=== PATIENT | female | born 1970 | race Caucasian/White ===

== ENCOUNTER 2020-04-20 11:36 | Inpatient (IN) | payer OTHER ==
[~2020-04-20] VITALS: Ht 157.5 cm; Wt 54.4 kg
[~2020-04-20 11:36] MED LIST: AEROECLIPSE II1 EACH MC; ALBUTEROL INH; ALBUTEROL1.25 MG/3 INH; ANORO ELLIPTA1 EACH INH; FUROSEMIDE20 MG PO; HYDROXYZINE HCL25 MG PO; MEDROL DOSEPAK 24 MG PO; NICOTINE PATCH1 EAC2 TOP; OMNICEF 300 MG300 MG PO; PERCOCET 5/325 T1 EA PO; PREDNISONE 50 M50 MG PO; VENTOLIN HFA 66.7 GM INH; VIBRAMYCIN100 MG PO; ZITHROMAX500 MG PO; ZOLOFT50 MG PO
[2020-04-20 12:12] LABS: HEMOGLOBIN 12.6 gm/dl (12.3-15.3); RED BLOOD COUNT 4.55 M/UL (4.00-5.10); WHITE BLOOD COUNT 12.2 K/UL (4.5-11.0)
[2020-04-20 12:32] LABS: BUN/CREATININE RATIO 20 (0-10)
[2020-04-20] MEDS ORDERED: BREO ELLIPTA 21 EACH INH (20:57)
[2020-04-21 03:29] LABS: HEMOGLOBIN 12.4 gm/dl (12.3-15.3); RED BLOOD COUNT 4.54 M/UL (4.00-5.10); WHITE BLOOD COUNT 13.3 K/UL (4.5-11.0)
[2020-04-21 03:45] LABS: BUN/CREATININE RATIO 20 (0-10)
[2020-04-22] MEDS ORDERED: NICOTINE PATCH1 EAC1 TD (16:23)
[2020-04-22] MEDS ORDERED: PREDNISONE 5 MG5 MG PO (16:23)
[2020-10-17] MEDS ORDERED: ALBUTEROL2.5 MG/3 M INH (09:03)
[2020-10-17] MEDS ORDERED: ANORO ELLIPTA1 EACH INH (09:05)
[2020-10-17] MEDS ORDERED: FUROSEMIDE40 MG PO (09:05)
[2020-10-17] MEDS ORDERED: HYDROXYZINE HCL25 MG PO (09:06)
[2020-10-17] MEDS ORDERED: KLOR-CON M2020 MEQ PO (09:06)
[2020-10-17] MEDS ORDERED: LISINOPRIL5 MG PO (09:07)
[2020-10-17] MEDS ORDERED: OMEPRAZOLE20 M1 PO (09:07)
[2020-10-17] MEDS ORDERED: LOW DOSE ASPIRI81 MG PO (09:08)
[2020-10-17] MEDS ORDERED: SERTRALINE HCL50 MG PO (09:08)
[2020-10-17] MEDS ORDERED: IRON PILL PO (09:09)
== END 2020-04-22 17:40 | disposition home or self-care (01) | DRG 189 ==
LOC: ER1 11:36 → MED SURG 4 18:46 → CDU 18:46 → MED SURG 4 21:18
PROVIDERS: Emergency Medicine; ADMIT Internal Medicine
DX: J96.01 Acute respiratory failure with hypoxia (principal); I50.33 Acute on chronic diastolic (congestive) heart failure; J44.1 Chronic obstructive pulmonary disease with (acute) exacerbation; Z20.828 Contact with and (suspected) exposure to other viral communicable diseases; Z90.81 Acquired absence of spleen; E27.8 Other specified disorders of adrenal gland; F17.210 Nicotine dependence, cigarettes, uncomplicated; F41.9 Anxiety disorder, unspecified; D47.3 Essential (hemorrhagic) thrombocythemia; F10.11 Alcohol abuse, in remission; Z90.49 Acquired absence of other specified parts of digestive tract; Z96.643 Presence of artificial hip joint, bilateral; Z88.1 Allergy status to other antibiotic agents; I27.20 Pulmonary hypertension, unspecified; I08.1 Rheumatic disorders of both mitral and tricuspid valves; Z23 Encounter for immunization
CPT/HCPCS: ECHO; 36415; 36600; 71045; 80053; 81001; 82550; 82553; 82803; 83605; 83690; 83874; 83880; 84484; 85025; 85027; 85379; 85610; 85730; 87040; 93005; 93306; 94640; 94664; 94760; 96372; 96374; 99285; J1650; J1940; J2920; Q0177; Q9967; U0002

== ENCOUNTER 2020-05-27 20:41 | Inpatient (IN) | payer OTHER ==
[~2020-05-27] VITALS: Ht 157.5 cm; Wt 56.7 kg
[~2020-05-27 20:41] MED LIST changes: +BREO ELLIPTA 21 EACH INH; +NICOTINE PATCH1 EAC1 TD; +PREDNISONE 5 MG5 MG PO
[2020-05-27 21:40] LABS: HEMOGLOBIN 12.5 gm/dl (12.3-15.3); RED BLOOD COUNT 4.66 M/UL (4.00-5.10); WHITE BLOOD COUNT 14.9 K/UL (4.5-11.0)
[2020-05-27 21:53] LABS: BUN/CREATININE RATIO 12 (0-10)
[2020-05-28 06:38] LABS: HEMOGLOBIN 11.8 gm/dl (12.3-15.3); RED BLOOD COUNT 4.54 M/UL (4.00-5.10); WHITE BLOOD COUNT 11.3 K/UL (4.5-11.0)
[2020-05-28] MEDS ORDERED: VISTARIL50 MG PO (07:05)
[2020-05-28 07:11] LABS: BUN/CREATININE RATIO 16 (0-10)
--- NOTE | 2020-05-29 13:10 | NUR ---
PT HAS C/O ABD PAIN ALL MORNING DRYHEAVES NOTED , GOT HER NAUSEA AND ANXIETY MEDS ORDERED , DAUGHTER WAS WITH HER AND NOT HER AUNT IS WITH HER , DR TRAYLOR JUST WALKED OUT OF RROM AND SISTER CAME OUT AND SAID NOW SHE IS HAVING CHEST PAIN , I ASKED IF SHE TOLD THE DR SHE SAID NOW IT JUST STARTED , SO I IMMEDIATLY WALKED UP FRONT AND TOLD DR TRAYLOR THAT , SHE HAS ORDERED PULMONARY TO CONSULT ON HER NOTED AND AND ADDED ANOTHER ANTIBIOTIC WAS STARTED . PT TALKES HER AIRVO OFF AND ON I INSTRUCTED HER NOT TO BE DOING THAT HER SATS DROPS INTO THE 70S NOTED , BEDSIDE COMMODE AT HER SIDE , INSTRUCTED FOR HER TO CALL FOR HELP NOT TO GET UP ALONE , SHE VERBALIZES. FAMILY REMAINS AT BEDSIDE .
[2020-05-29 19:39] LABS: BORDETELLA PARAPERTUSSIS Not Detected (Not Detectd); BORDETELLA PERTUSSIS Not Detected (Not Detectd); CHLAMYDIA PNEUMONIAE Not Detected (Not Detectd); CORONAVIRUS HKU1 Not Detected (Not Detectd); CORONAVIRUS NL63 Not Detected (Not Detectd); CORONAVIRUS OC43 Not Detected (Not Detectd); CORONOAVIRUS 229E Not Detected (Not Detectd); HUMAN METAPNEUMOVIRUS Not Detected (Not Detectd); HUMAN RHINOVIRUS/ENTEROVIRUS Not Detected (Not Detectd); INFLUENZA A Not Detected (Not Detectd); INFLUENZA B Not Detected (Not Detectd); MYCOPLASMA PNEUMONIAE Not Detected (Not Detectd); PARAINFLUENZA VIRUS 1 Not Detected (Not Detectd); PARAINFLUENZA VIRUS 2 Not Detected (Not Detectd); PARAINFLUENZA VIRUS 3 Not Detected (Not Detectd); PARAINFLUENZA VIRUS 4 Not Detected (Not Detectd); RESPIRATORY SYNCYTIAL VIRUS Not Detected (Not Detectd)
[2020-05-29 20:35] LABS: SARS-CoV-2 NOT DETECTED (Not Detectd)
[2020-05-30 03:39] LABS: BUN/CREATININE RATIO 26 (0-10)
[2020-05-31 05:55] LABS: HEMOGLOBIN 11.6 gm/dl (12.3-15.3); RED BLOOD COUNT 4.42 M/UL (4.00-5.10); WHITE BLOOD COUNT 23.9 K/UL (4.5-11.0)
[2020-05-31 06:14] LABS: BUN/CREATININE RATIO 27 (0-10)
--- NOTE | 2020-05-31 11:29 | NUR ---
05/31/20 1100 ROOM AIR SAT 85%
[2020-06-01 17:08] LABS: ORGANISM ID Not indicated. (.); SPECIMEN SOURCE Urine (.); STREPTOCOCCUS PNEUMONIAE AG Negative (Negative)
[2020-06-02] MEDS ORDERED: METHYLPREDNISOLO4 M1 PO ×3 (10:14)
[2020-06-02] MEDS ORDERED: FUROSEMIDE20 MG PO (10:14)
[2020-06-02] MEDS ORDERED: CEFUROXIME250 MG PO (10:14)
[2020-06-02] MEDS ORDERED: NICOTINE PATCH1 EAC1 TD (10:22)
[2020-10-17] MEDS ORDERED: ALBUTEROL2.5 MG/3 M INH (09:03)
[2020-10-17] MEDS ORDERED: ANORO ELLIPTA1 EACH INH (09:05)
[2020-10-17] MEDS ORDERED: FUROSEMIDE40 MG PO (09:05)
[2020-10-17] MEDS ORDERED: HYDROXYZINE HCL25 MG PO (09:06)
[2020-10-17] MEDS ORDERED: KLOR-CON M2020 MEQ PO (09:06)
[2020-10-17] MEDS ORDERED: LISINOPRIL5 MG PO (09:07)
[2020-10-17] MEDS ORDERED: OMEPRAZOLE20 M1 PO (09:07)
[2020-10-17] MEDS ORDERED: LOW DOSE ASPIRI81 MG PO (09:08)
[2020-10-17] MEDS ORDERED: SERTRALINE HCL50 MG PO (09:08)
[2020-10-17] MEDS ORDERED: IRON PILL PO (09:09)
== END 2020-06-02 15:14 | disposition home or self-care (01) | DRG 291 ==
LOC: ER1 20:41 → ZEROF 05-28 03:02 → MED SURG 4 05-28 03:02
PROVIDERS: Emergency Medicine; Internal Medicine; ADMIT Internal Medicine
DX: I11.0 Hypertensive heart disease with heart failure (principal); J96.01 Acute respiratory failure with hypoxia; R65.11 Systemic inflammatory response syndrome (SIRS) of non-infectious origin with acute organ dysfunction; J44.1 Chronic obstructive pulmonary disease with (acute) exacerbation; F41.9 Anxiety disorder, unspecified; Z20.822 Contact with and (suspected) exposure to COVID-19; I50.33 Acute on chronic diastolic (congestive) heart failure; F17.210 Nicotine dependence, cigarettes, uncomplicated; I27.20 Pulmonary hypertension, unspecified; F32.9 Major depressive disorder, single episode, unspecified; Z99.81 Dependence on supplemental oxygen; Z88.1 Allergy status to other antibiotic agents; Z98.890 Other specified postprocedural states; Z83.3 Family history of diabetes mellitus; D47.3 Essential (hemorrhagic) thrombocythemia; R74.01 Elevation of levels of liver transaminase levels; F10.11 Alcohol abuse, in remission
CPT/HCPCS: 36415; 36600; 71045; 74150; 80048; 80053; 82550; 82553; 82803; 83735; 83874; 83880; 84484; 85025; 85379; 86738; 87040; 87205; 87278; 87633; 87899; 93005; 94640; 94664; 94760; 96365; 96366; 96367; 96368; 96375; 96376; 99285; J0456; J0696; J1650; J1940; J2060; J2405; J2920; J2930; J7030; Q0177; Q9967; U0002

== ENCOUNTER 2020-06-09 23:49 | Inpatient (IN) | payer OTHER ==
[~2020-06-09] VITALS: Ht 160 cm; Wt 61.2 kg
[~2020-06-09 23:49] MED LIST changes: +CEFUROXIME250 MG PO; +METHYLPREDNISOLO4 M1 PO; +VISTARIL50 MG PO
[2020-06-10 00:39] LABS: HEMOGLOBIN 11.8 gm/dl (12.3-15.3); RED BLOOD COUNT 4.5 M/UL (4.00-5.10); WHITE BLOOD COUNT 15.6 K/UL (4.5-11.0)
[2020-06-10 01:04] LABS: BUN/CREATININE RATIO 18 (0-10)
[2020-06-11 03:38] LABS: HEMOGLOBIN 11.1 gm/dl (12.3-15.3); RED BLOOD COUNT 4.33 M/UL (4.00-5.10)
[2020-06-11 03:44] LABS: WHITE BLOOD COUNT 7.4 K/UL (4.5-11.0)
[2020-06-11 04:03] LABS: BUN/CREATININE RATIO 21 (0-10)
[2020-06-12 04:41] LABS: HEMOGLOBIN 10.8 gm/dl (12.3-15.3); RED BLOOD COUNT 4.19 M/UL (4.00-5.10); WHITE BLOOD COUNT 7.4 K/UL (4.5-11.0)
[2020-06-12 04:59] LABS: BUN/CREATININE RATIO 27 (0-10)
[2020-06-13 02:57] LABS: HEMOGLOBIN 11.2 gm/dl (12.3-15.3); RED BLOOD COUNT 4.35 M/UL (4.00-5.10); WHITE BLOOD COUNT 10.5 K/UL (4.5-11.0)
[2020-06-13 03:29] LABS: BUN/CREATININE RATIO 27 (0-10)
[2020-06-14 06:17] LABS: HEMOGLOBIN 11.9 gm/dl (12.3-15.3); RED BLOOD COUNT 4.56 M/UL (4.00-5.10)
[2020-06-14 06:22] LABS: WHITE BLOOD COUNT 15.8 K/UL (4.5-11.0)
[2020-06-14 08:23] LABS: BUN/CREATININE RATIO 22 (0-10)
--- NOTE | 2020-06-14 15:26 | NUR ---
1445: PATIENT HAS BEEN PROFOUNDLY TIRED TODAY AND SLEPT MOST OF DAY; ABG'S DRAWN EARLIER, WITH NOTED INCREASE IN [place] FROM ADMISSION ABG. PATIENT ALSO A KNOW "METH" USER. PATIENT AGAIN STATES THAT SHE LAST USED METH ABOUT 3 WEEKS AGO. ORDER NOTED TO TRY BIPAP FOR ABOUT 2 HOURS AND MONITOR FOR IMPROVED LETHARGY. 1500: PATIENT PLACED ON BIPAP / WITH 32% FI02 WITH A BACK-UP RATE OF 16. RN WILL MONITOR FOR EFFECTIVENESS AND REPORT BACK TO DR RIVERA FOR ANY ADDITIONAL ORDERS. 1540: PATIENT NOW AWAKE, DEMANDING THAT BIPAP BE REMOVED, STATING THAT SHE CAN STAY AWAKE NOW. DR RIVERA PAGED. BIPAP REMOVED. PATIENT ASKING WHY SHE WAS PUT ON "THAT MACHINE". RN EXPLAINED THAT PATIENT HAD SLEPT MOST OF THE DAY AND WAS RETAINING C02 PER THE ABG RESULTS. PATIENT STATES THAT SHE USUALLY SLEEPS FOR 2 -3 DAYS WHEN SHE COMING OFF METH AND THEN SHE IS "GOOD". WILL CONTINUE TO MONITOR. SPO0 NOTED AT 96%.
[2020-06-16 04:40] LABS: HEMOGLOBIN 12.7 gm/dl (12.3-15.3); RED BLOOD COUNT 4.92 M/UL (4.00-5.10); WHITE BLOOD COUNT 18.6 K/UL (4.5-11.0)
[2020-06-16 05:01] LABS: BUN/CREATININE RATIO 33 (0-10)
[2020-06-17 05:12] LABS: HEMOGLOBIN 12.9 gm/dl (12.3-15.3); RED BLOOD COUNT 4.93 M/UL (4.00-5.10); WHITE BLOOD COUNT 16.6 K/UL (4.5-11.0)
[2020-06-17 05:35] LABS: BUN/CREATININE RATIO 32 (0-10)
[2020-06-17] MEDS ORDERED: DECADRON6 MG PO (09:09)
[2020-06-17] MEDS ORDERED: CEFUROXIME250 MG PO (09:09)
[2020-10-17] MEDS ORDERED: ALBUTEROL2.5 MG/3 M INH (09:03)
[2020-10-17] MEDS ORDERED: ANORO ELLIPTA1 EACH INH (09:05)
[2020-10-17] MEDS ORDERED: FUROSEMIDE40 MG PO (09:05)
[2020-10-17] MEDS ORDERED: HYDROXYZINE HCL25 MG PO (09:06)
[2020-10-17] MEDS ORDERED: KLOR-CON M2020 MEQ PO (09:06)
[2020-10-17] MEDS ORDERED: OMEPRAZOLE20 M1 PO (09:07)
[2020-10-17] MEDS ORDERED: LISINOPRIL5 MG PO (09:07)
[2020-10-17] MEDS ORDERED: LOW DOSE ASPIRI81 MG PO (09:08)
[2020-10-17] MEDS ORDERED: SERTRALINE HCL50 MG PO (09:08)
[2020-10-17] MEDS ORDERED: IRON PILL PO (09:09)
== END 2020-06-18 14:28 | disposition home or self-care (01) | DRG 177 ==
LOC: ER1 23:49 → CDU 06-10 02:59 → MED SURG 4 06-10 02:59 → CDU 06-10 02:59 → MED SURG 4 06-10 11:26
PROVIDERS: Internal Medicine; Physician Assistant; ADMIT Family Medicine
PROC: XW033E5 Introduction of Remdesivir Anti-infective into Peripheral Vein, Percutaneous Approach, New Technology Group 5 (ICD-10-PCS; 2020-06-10)
PROC: 5A09357 Assistance with Respiratory Ventilation, Less than 24 Consecutive Hours, Continuous Positive Airway Pressure (ICD-10-PCS; principal; 2020-06-11)
PROC: 8E0ZXY6 Isolation (ICD-10-PCS; 2020-06-11)
PROC: XW13325 Transfusion of Convalescent Plasma (Nonautologous) into Peripheral Vein, Percutaneous Approach, New Technology Group 5 (ICD-10-PCS; 2020-06-11)
DX: U07.1 COVID-19 (principal); J12.82 Pneumonia due to coronavirus disease 2019; J96.21 Acute and chronic respiratory failure with hypoxia; J15.9 Unspecified bacterial pneumonia; I50.32 Chronic diastolic (congestive) heart failure; I11.0 Hypertensive heart disease with heart failure; F41.9 Anxiety disorder, unspecified; I27.20 Pulmonary hypertension, unspecified; J44.9 Chronic obstructive pulmonary disease, unspecified; D72.828 Other elevated white blood cell count; F17.210 Nicotine dependence, cigarettes, uncomplicated; F15.90 Other stimulant use, unspecified, uncomplicated; I08.1 Rheumatic disorders of both mitral and tricuspid valves; Z90.49 Acquired absence of other specified parts of digestive tract; Z88.1 Allergy status to other antibiotic agents; Z83.3 Family history of diabetes mellitus; Z82.49 Family history of ischemic heart disease and other diseases of the circulatory system; Z79.899 Other long term (current) drug therapy; Z90.81 Acquired absence of spleen
CPT/HCPCS: 0240U; 36415; 36600; 71045; 80048; 80053; 80202; 80307; 81001; 82550; 82553; 82803; 83874; 83880; 84484; 84703; 85025; 85027; 86900; 86901; 86927; 93005; 94640; 94660; 94760; 96365; 96366; 96372; 96375; 96376; 99285; G0378; J0696; J1200; J1650; J1940; J2185; J3370; J7030; J7050; J7070; Q0177

== ENCOUNTER → 2020-07-04 | Outpatient (CLI) | payer OTHER ==
[~2020-07-04] MED LIST changes: +ALBUTEROL2.5 MG/3 M INH; +BACTRIM DS TAB1 EACH PO; +DECADRON6 MG PO; +FUROSEMIDE40 MG PO; +IRON PILL PO; +K-DUR TAB 20 M20 MEQ PO; +KLOR-CON M2020 MEQ PO; +LASIX40 MG PO; +LISINOPRIL5 MG PO; +LOPRESSOR 25 MG25 MG PO; +LOW DOSE ASPIRI81 MG PO; +OMEPRAZOLE20 M1 PO; +PRILOSEC OTC20 MG PO; +SERTRALINE HCL50 MG PO; +VITAMIN B-121000 MCG PO; +VITAMIN C500 M4 PO; +VITAMIN D325 MC6 PO; +ZINC50 M1 PO
== END ==
LOC: KOH-I 10:50
DX: J18.9 Pneumonia, unspecified organism (principal); R91.8 Other nonspecific abnormal finding of lung field
CPT/HCPCS: 71046

== ENCOUNTER 2020-07-05 20:18 | Observation (INO) | payer OTHER ==
[~2020-07-05] VITALS: Ht 157.5 cm; Wt 61.2 kg
[~2020-07-05 20:18] MED LIST changes: -ALBUTEROL2.5 MG/3 M INH; -BACTRIM DS TAB1 EACH PO; -FUROSEMIDE40 MG PO; -IRON PILL PO; -K-DUR TAB 20 M20 MEQ PO; -KLOR-CON M2020 MEQ PO; -LASIX40 MG PO; -LISINOPRIL5 MG PO; -LOPRESSOR 25 MG25 MG PO; -LOW DOSE ASPIRI81 MG PO; -OMEPRAZOLE20 M1 PO; -PRILOSEC OTC20 MG PO; -SERTRALINE HCL50 MG PO; -VITAMIN B-121000 MCG PO; -VITAMIN C500 M4 PO; -VITAMIN D325 MC6 PO; -ZINC50 M1 PO
[2020-07-05 21:09] LABS: HEMOGLOBIN 12.9 gm/dl (12.3-15.3); RED BLOOD COUNT 4.91 M/UL (4.00-5.10); WHITE BLOOD COUNT 19.3 K/UL (4.5-11.0)
[2020-07-05 21:26] LABS: BUN/CREATININE RATIO 27 (0-10)
[2020-07-05] MEDS ORDERED: ZINC50 M1 PO (23:42)
[2020-07-05] MEDS ORDERED: VITAMIN B-121000 MCG PO (23:42)
[2020-07-05] MEDS ORDERED: VITAMIN C500 M4 PO (23:42)
[2020-07-05] MEDS ORDERED: PRILOSEC OTC20 MG PO (23:42)
[2020-07-05] MEDS ORDERED: VITAMIN D325 MC6 PO (23:43)
[2020-07-06 04:42] LABS: HEMOGLOBIN 12.8 gm/dl (12.3-15.3); RED BLOOD COUNT 4.82 M/UL (4.00-5.10); WHITE BLOOD COUNT 19.1 K/UL (4.5-11.0)
[2020-07-06 05:00] LABS: BUN/CREATININE RATIO 36 (0-10)
[2020-07-07 07:17] LABS: BUN/CREATININE RATIO 27 (0-10)
[2020-07-07] MEDS ORDERED: LASIX40 MG PO (11:23)
[2020-07-07] MEDS ORDERED: K-DUR TAB 20 M20 MEQ PO (11:23)
[2020-07-08 09:44] LABS: ACINETOBACTER BAUMANNII Not Detected (Negative); CANDIDA ALBICANS Not Detected (Negative); CANDIDA KRUSEI Not Detected (Negative); CANDIDA TROPICALIS Not Detected (Negative); ENTEROCOCCUS Not Detected (Negative); ESCHERICHIA COLI Not Detected (Negative); HAEMOPHILUS INFLUENZAE Not Detected (Negative); KLEBSIELLA OXYTOCA Not Detected (Negative); KLEBSIELLA PNEUMONIAE Not Detected (Negative); KPC-CARBAPENEM-RESISTANCE GENE Not Detected (Negative); PROTEUS Not Detected (Negative); PSEUDOMONAS AERUGINOSA Not Detected (Negative); SERRATIA MARCESANS Not Detected (Negative); STAPHYLOCOCCUS Not Detected (Negative); STAPHYLOCOCCUS AUREUS Not Detected (Negative); STREP AGALACTIAE (GROUP B) Not Detected (Negative); STREP PYOGENES (GROUP A) Not Detected (Negative); STREPTOCOCCUS Not Detected (Negative); mecA (METHICILLIN RESIST GENE Not Detected (Negative); vanA/B (VANCOMYCIN RESIST GENE Not Detected (Negative)
[2020-10-17] MEDS ORDERED: ALBUTEROL2.5 MG/3 M INH (09:03)
[2020-10-17] MEDS ORDERED: ANORO ELLIPTA1 EACH INH (09:05)
[2020-10-17] MEDS ORDERED: FUROSEMIDE40 MG PO (09:05)
[2020-10-17] MEDS ORDERED: KLOR-CON M2020 MEQ PO (09:06)
[2020-10-17] MEDS ORDERED: HYDROXYZINE HCL25 MG PO (09:06)
[2020-10-17] MEDS ORDERED: OMEPRAZOLE20 M1 PO (09:07)
[2020-10-17] MEDS ORDERED: LISINOPRIL5 MG PO (09:07)
[2020-10-17] MEDS ORDERED: SERTRALINE HCL50 MG PO (09:08)
[2020-10-17] MEDS ORDERED: LOW DOSE ASPIRI81 MG PO (09:08)
[2020-10-17] MEDS ORDERED: IRON PILL PO (09:09)
== END 2020-07-07 13:33 | disposition home or self-care (01) ==
LOC: ER1 20:18 → CDU 23:30 → MED SURG 4 23:30
PROVIDERS: Emergency Medicine; Internal Medicine; Physician Assistant; ADMIT Internal Medicine Infectious Disease
DX: I11.0 Hypertensive heart disease with heart failure (principal); I50.33 Acute on chronic diastolic (congestive) heart failure; J96.21 Acute and chronic respiratory failure with hypoxia; J44.9 Chronic obstructive pulmonary disease, unspecified; F41.9 Anxiety disorder, unspecified; I27.20 Pulmonary hypertension, unspecified; F32.9 Major depressive disorder, single episode, unspecified; D72.828 Other elevated white blood cell count; Z86.16 Personal history of COVID-19; Z99.81 Dependence on supplemental oxygen; Z87.891 Personal history of nicotine dependence; Z79.899 Other long term (current) drug therapy; Z88.1 Allergy status to other antibiotic agents; Z87.01 Personal history of pneumonia (recurrent); Z20.822 Contact with and (suspected) exposure to COVID-19
CPT/HCPCS: 0240U; 36415; 36600; 71045; 80048; 80053; 82550; 82553; 82803; 83605; 83874; 84484; 85025; 85379; 85610; 87040; 87077; 93005; 94640; 94664; 94760; 96372; 96374; 96375; 96376; 99285; G0378; J1650; J1940; J2920; Q0177; Q9967

== ENCOUNTER → 2020-07-21 | Outpatient (CLI) | payer OTHER ==
[~2020-07-21] MED LIST changes: +ALBUTEROL2.5 MG/3 M INH; +BACTRIM DS TAB1 EACH PO; +FUROSEMIDE40 MG PO; +IRON PILL PO; +K-DUR TAB 20 M20 MEQ PO; +KLOR-CON M2020 MEQ PO; +LASIX40 MG PO; +LISINOPRIL5 MG PO; +LOPRESSOR 25 MG25 MG PO; +LOW DOSE ASPIRI81 MG PO; +OMEPRAZOLE20 M1 PO; +PRILOSEC OTC20 MG PO; +SERTRALINE HCL50 MG PO; +VITAMIN B-121000 MCG PO; +VITAMIN C500 M4 PO; +VITAMIN D325 MC6 PO; +ZINC50 M1 PO
== END ==
LOC: HEART 5 10:41
DX: J44.9 Chronic obstructive pulmonary disease, unspecified (principal)
CPT/HCPCS: 94060; 94729

== ENCOUNTER → 2020-07-28 | Outpatient (CLI) | payer OTHER ==
[2020-07-28 11:52] LABS: WHITE BLOOD COUNT 13.3 K/UL (4.5-11.0)
[2020-07-28 11:53] LABS: HEMOGLOBIN 13.8 gm/dl (12.3-15.3); RED BLOOD COUNT 5.32 M/UL (4.00-5.10)
[2020-07-28 12:19] LABS: BUN/CREATININE RATIO 18 (0-10)
== END ==
LOC: LAB 10:16
PROVIDERS: Internal Medicine Interventional Cardiology
DX: I27.20 Pulmonary hypertension, unspecified (principal); I50.9 Heart failure, unspecified; J44.9 Chronic obstructive pulmonary disease, unspecified; R06.02 Shortness of breath; R94.31 Abnormal electrocardiogram [ECG] [EKG]
CPT/HCPCS: 36415; 80048; 85025; 85610; 85730; 93005

== ENCOUNTER → 2020-08-29 | Outpatient (CLI) | payer OTHER | LOC: HEART 5 08-11 08:00 | DX: R06.02 Shortness of breath (principal); I51.89 Other ill-defined heart diseases | CPT/HCPCS: 78452; A9502; J2785 ==

== ENCOUNTER → 2020-09-15 | Outpatient (CLI) | payer OTHER | LOC: HEART 5 11:19 | DX: I50.9 Heart failure, unspecified (principal); I27.20 Pulmonary hypertension, unspecified; I08.1 Rheumatic disorders of both mitral and tricuspid valves | CPT/HCPCS: 93306 ==

== ENCOUNTER 2020-09-26 20:33 | Observation (INO) | payer OTHER ==
[~2020-09-26] VITALS: Ht 157.5 cm; Wt 64.1 kg
[~2020-09-26 20:33] MED LIST changes: -ALBUTEROL2.5 MG/3 M INH; -BACTRIM DS TAB1 EACH PO; -FUROSEMIDE40 MG PO; -IRON PILL PO; -KLOR-CON M2020 MEQ PO; -LISINOPRIL5 MG PO; -LOPRESSOR 25 MG25 MG PO; -LOW DOSE ASPIRI81 MG PO; -OMEPRAZOLE20 M1 PO; -SERTRALINE HCL50 MG PO
[2020-09-26 21:11] LABS: HEMOGLOBIN 13.6 gm/dl (12.3-15.3); RED BLOOD COUNT 5.18 M/UL (4.00-5.10); WHITE BLOOD COUNT 16.6 K/UL (4.5-11.0)
[2020-09-26 21:35] LABS: BUN/CREATININE RATIO 17 (0-10)
--- NOTE | 2020-09-27 22:38 | NUR ---
1939 pt had a 30 beat run of vtach over 8.7 seconds. bp 141/[address] Burgess notified, ordered a stat EKG, recheck of K+ and Mag levels and call director trading. Called Dr. Lauren, he ordered Metoprolol 25 mg Q6 hours and lopressor 5mg daily. Repeat K+ and Mag daily X3
[2020-09-28 02:57] LABS: HEMOGLOBIN 14.6 gm/dl (12.3-15.3); RED BLOOD COUNT 5.64 M/UL (4.00-5.10); WHITE BLOOD COUNT 13.9 K/UL (4.5-11.0)
[2020-09-28 03:20] LABS: BUN/CREATININE RATIO 24 (0-10)
[2020-09-28] MEDS ORDERED: LISINOPRIL5 MG PO (11:36)
[2020-09-28] MEDS ORDERED: LOPRESSOR 25 MG25 MG PO (11:36)
[2020-09-28] MEDS ORDERED: K-DUR TAB 20 M20 MEQ PO (11:45)
[2020-09-28] MEDS ORDERED: LASIX40 MG PO (11:45)
[2020-09-28] MEDS ORDERED: OMNICEF 300 MG300 MG PO (12:37)
--- NOTE | 2020-09-28 13:30 | NUR ---
RN SPOKE WITH PATIENT'S DAUGHTER, WHO IS GOING TO CONTACT PATIENT'S COUSIN NAZIA ABOUT TRANSPORTING HER HOME. PATIENT'S DAUGHTER STATED SHE WOULD CALL RN BACK ABOUT TRANSPORT PLAN.
--- NOTE | 2020-09-28 15:48 | NUR ---
RN SPOKE WITH DR. MCGUIRE ABOUT PATIENT DISCHARGE. HE INSTRUCTED RN TO WAIT ON RESULTS OF ABG THEN NOTIFY HIM OF RESULTS. PATIENT STATED SHE FELT COMFORTABLE DRIVING SELF HOME WHEN PERMITTED TO DO SO BY STAFF.
--- NOTE | 2020-09-28 16:36 | NUR ---
PATIENT REFUSED TO HAVE ABG DRAWN, MD MADE AWARE. RN AND DR. MCGUIRE WENT INTO PATIENT'S ROOM TO DISCUSS TRANSPORT WITH HER. PATIENT'S SISTER, TONY, STATED SHE WOULD PICK HER UP. RN AND MD INFORMED PATIENT THAT HER SISTER OFFERED TO COME GET HER, PATIENT STATED SHE WOULD WAIT FOR HER TO TRANSPORT HER. PATIENT NOTED TO BE ALERT AND ORIENTED X3 AND ABLE TO AMBULATE WITH OXYGEN SET TO 2 L/MIN VIA NASAL CANNULA.
[2020-10-17] MEDS ORDERED: ALBUTEROL2.5 MG/3 M INH (09:03)
[2020-10-17] MEDS ORDERED: ANORO ELLIPTA1 EACH INH (09:05)
[2020-10-17] MEDS ORDERED: FUROSEMIDE40 MG PO (09:05)
[2020-10-17] MEDS ORDERED: HYDROXYZINE HCL25 MG PO (09:06)
[2020-10-17] MEDS ORDERED: KLOR-CON M2020 MEQ PO (09:06)
[2020-10-17] MEDS ORDERED: LISINOPRIL5 MG PO (09:07)
[2020-10-17] MEDS ORDERED: OMEPRAZOLE20 M1 PO (09:07)
[2020-10-17] MEDS ORDERED: SERTRALINE HCL50 MG PO (09:08)
[2020-10-17] MEDS ORDERED: LOW DOSE ASPIRI81 MG PO (09:08)
[2020-10-17] MEDS ORDERED: IRON PILL PO (09:09)
== END 2020-09-28 17:09 | disposition home or self-care (01) ==
LOC: ER1 20:33 → CDU 09-27 03:00 → M/S 09-27 03:00
PROVIDERS: Emergency Medicine; ADMIT Internal Medicine
DX: I11.0 Hypertensive heart disease with heart failure (principal); I50.33 Acute on chronic diastolic (congestive) heart failure; I47.2 Ventricular tachycardia; I05.0 Rheumatic mitral stenosis; J96.11 Chronic respiratory failure with hypoxia; F19.10 Other psychoactive substance abuse, uncomplicated; J44.9 Chronic obstructive pulmonary disease, unspecified; F15.10 Other stimulant abuse, uncomplicated; F12.10 Cannabis abuse, uncomplicated; R59.0 Localized enlarged lymph nodes; F17.210 Nicotine dependence, cigarettes, uncomplicated; I27.20 Pulmonary hypertension, unspecified; Z86.16 Personal history of COVID-19; Z86.74 Personal history of sudden cardiac arrest; Z99.81 Dependence on supplemental oxygen; Z88.1 Allergy status to other antibiotic agents; Z79.899 Other long term (current) drug therapy; Z20.822 Contact with and (suspected) exposure to COVID-19
CPT/HCPCS: 0240U; 36415; 36600; 71045; 80048; 80053; 80307; 82550; 82553; 82803; 83605; 83690; 83735; 83874; 83880; 84132; 84484; 84703; 85025; 85379; 85610; 85730; 87040; 93005; 94640; 94664; 94760; 96365; 96372; 96375; 96376; 99285; G0378; J0696; J1650; J1940; Q9967

== ENCOUNTER → 2020-09-29 | Outpatient (CLI) | payer OTHER ==
[~2020-09-29] MED LIST changes: +ALBUTEROL2.5 MG/3 M INH; +BACTRIM DS TAB1 EACH PO; +FUROSEMIDE40 MG PO; +IRON PILL PO; +KLOR-CON M2020 MEQ PO; +LISINOPRIL5 MG PO; +LOPRESSOR 25 MG25 MG PO; +LOW DOSE ASPIRI81 MG PO; +OMEPRAZOLE20 M1 PO; +SERTRALINE HCL50 MG PO
[2020-09-29 16:58] LABS: HEMOGLOBIN 14.7 gm/dl (12.3-15.3); RED BLOOD COUNT 5.59 M/UL (4.00-5.10); WHITE BLOOD COUNT 12.2 K/UL (4.5-11.0)
[2020-09-29 17:16] LABS: BUN/CREATININE RATIO 28 (0-10)
== END ==
LOC: LAB 15:47
PROVIDERS: Internal Medicine Interventional Cardiology
DX: I50.9 Heart failure, unspecified (principal); I05.2 Rheumatic mitral stenosis with insufficiency; R06.02 Shortness of breath
CPT/HCPCS: 80048; 85025; 85610; 85730; 93005

== ENCOUNTER → 2020-10-11 | Outpatient (CLI) | payer OTHER ==
[2020-10-11 12:48] LABS: HEMOGLOBIN 14.7 gm/dl (12.3-15.3); RED BLOOD COUNT 5.52 M/UL (4.00-5.10)
[2020-10-11 13:37] LABS: BUN/CREATININE RATIO 17 (0-10)
[2020-10-13 11:15] LABS: HBSAG SCREEN Negative (Negative); HEP A AB, IGM Negative (Negative); HEP B CORE AB, IGM Negative (Negative); HEP C VIRUS AB <0.1 (0.0-0.9)
== END ==
LOC: LAB 12:09
PROVIDERS: Physician Assistant Medical
DX: D72.829 Elevated white blood cell count, unspecified (principal); E78.2 Mixed hyperlipidemia; F12.90 Cannabis use, unspecified, uncomplicated; F19.10 Other psychoactive substance abuse, uncomplicated
CPT/HCPCS: 36415; 80053; 80074; 85025

== ENCOUNTER → 2020-10-17 | Outpatient (CLI) | payer OTHER | LOC: CATH 08:02 → EDSTATUS 09:00 | DX: I05.2 Rheumatic mitral stenosis with insufficiency (principal); I07.1 Rheumatic tricuspid insufficiency; I27.20 Pulmonary hypertension, unspecified; I50.9 Heart failure, unspecified; J44.9 Chronic obstructive pulmonary disease, unspecified; F41.9 Anxiety disorder, unspecified; I25.2 Old myocardial infarction; Z86.16 Personal history of COVID-19; Z87.891 Personal history of nicotine dependence; Z88.1 Allergy status to other antibiotic agents; Z79.82 Long term (current) use of aspirin; Z79.899 Other long term (current) drug therapy | CPT/HCPCS: 36415; 82803; 85610; 85730; 93005; 99152; 99153; C1751; C1769; J1644; J2250; J7030; Q9967 ==

== ENCOUNTER 2020-10-30 15:38 | Emergency (ER) | payer OTHER ==
[~2020-10-30 15:38] MED LIST changes: -BACTRIM DS TAB1 EACH PO
[2020-10-30 17:26] LABS: HEMOGLOBIN 13.5 gm/dl (12.3-15.3); RED BLOOD COUNT 5.03 M/UL (4.00-5.10); WHITE BLOOD COUNT 26.5 K/UL (4.5-11.0)
[2020-10-30 17:46] LABS: BUN/CREATININE RATIO 11 (0-10)
[2020-10-30] MEDS ORDERED: BACTRIM DS TAB1 EACH PO (18:02)
== END 2020-10-30 18:45 | disposition home or self-care (01) ==
LOC: ER1 15:38
PROVIDERS: Physician Assistant
DX: J44.1 Chronic obstructive pulmonary disease with (acute) exacerbation (principal); J06.9 Acute upper respiratory infection, unspecified; H60.91 Unspecified otitis externa, right ear; I11.0 Hypertensive heart disease with heart failure; I50.9 Heart failure, unspecified; F17.210 Nicotine dependence, cigarettes, uncomplicated; Z86.16 Personal history of COVID-19; Z20.822 Contact with and (suspected) exposure to COVID-19
CPT/HCPCS: 0240U; 71045; 80053; 82550; 82553; 83605; 83874; 84484; 85025; 87040; 87081; 87880; 93005; 99283

== ENCOUNTER 2020-12-11 12:42 | Emergency (ER) | payer OTHER ==
[~2020-12-11 12:42] MED LIST changes: +BACTRIM DS TAB1 EACH PO
[2020-12-11 14:42] LABS: HEMOGLOBIN 13.3 gm/dl (12.3-15.3); RED BLOOD COUNT 5.24 M/UL (4.00-5.10)
[2020-12-11 14:46] LABS: WHITE BLOOD COUNT 31.8 K/UL (4.5-11.0)
[2020-12-11] MEDS ORDERED: IPRAT-ALBUT 0.5-3 ML INH (17:34)
[2020-12-11] MEDS ORDERED: OMNICEF 300 MG300 MG PO (17:34)
[2020-12-12 03:00] LABS: ACINETOBACTER BAUMANNII Not Detected (Negative); CANDIDA ALBICANS Not Detected (Negative); CANDIDA KRUSEI Not Detected (Negative); CANDIDA TROPICALIS Not Detected (Negative); ENTEROCOCCUS Not Detected (Negative); HAEMOPHILUS INFLUENZAE Not Detected (Negative); KLEBSIELLA OXYTOCA Not Detected (Negative); KLEBSIELLA PNEUMONIAE Not Detected (Negative); KPC-CARBAPENEM-RESISTANCE GENE Not Detected (Negative); PROTEUS Not Detected (Negative); PSEUDOMONAS AERUGINOSA Not Detected (Negative); SERRATIA MARCESANS Not Detected (Negative); STAPHYLOCOCCUS Not Detected (Negative); STAPHYLOCOCCUS AUREUS Not Detected (Negative); STREP AGALACTIAE (GROUP B) Not Detected (Negative); STREP PYOGENES (GROUP A) Not Detected (Negative); STREPTOCOCCUS Not Detected (Negative); mecA (METHICILLIN RESIST GENE Not Detected (Negative); vanA/B (VANCOMYCIN RESIST GENE Not Detected (Negative)
[2020-12-12 04:50] LABS: ESCHERICHIA COLI DETECTED (Negative)
== END 2020-12-11 19:45 | disposition home or self-care (01) ==
LOC: ER1 12:42
PROVIDERS: Physician Assistant
DX: N39.0 Urinary tract infection, site not specified (principal); I11.0 Hypertensive heart disease with heart failure; J44.9 Chronic obstructive pulmonary disease, unspecified; I50.30 Unspecified diastolic (congestive) heart failure; Z88.1 Allergy status to other antibiotic agents; Z90.49 Acquired absence of other specified parts of digestive tract; Z20.822 Contact with and (suspected) exposure to COVID-19
CPT/HCPCS: 71045; 80053; 80307; 81001; 82150; 83605; 83690; 85025; 87040; 87077; 87150; 87186; 94664; 94760; 99285; J0696; J1940; U0002

== ENCOUNTER 2020-12-13 00:10 | Observation (INO) | payer OTHER ==
[~2020-12-13] VITALS: Ht 157.5 cm; Wt 61.7 kg
[~2020-12-13 00:10] MED LIST changes: +IPRAT-ALBUT 0.5-3 ML INH
[2020-12-13 01:13] LABS: HEMOGLOBIN 12.6 gm/dl (12.3-15.3)
[2020-12-13 01:15] LABS: RED BLOOD COUNT 4.67 M/UL (4.00-5.10)
[2020-12-14 04:47] LABS: HEMOGLOBIN 11.6 gm/dl (12.3-15.3); RED BLOOD COUNT 4.59 M/UL (4.00-5.10); WHITE BLOOD COUNT 19.3 K/UL (4.5-11.0)
[2020-12-15 06:27] LABS: HEMOGLOBIN 12.3 gm/dl (12.3-15.3); RED BLOOD COUNT 4.65 M/UL (4.00-5.10); WHITE BLOOD COUNT 15.7 K/UL (4.5-11.0)
[2020-12-15] MEDS ORDERED: LEVOFLOXACIN750 MG PO (10:57)
== END 2020-12-15 10:56 | disposition home or self-care (01) ==
LOC: ER1 00:10 → CDU 05:44 → M/S 12-14 21:42
PROVIDERS: Physician Assistant; ADMIT Internal Medicine
DX: N10 Acute pyelonephritis (principal); A41.9 Sepsis, unspecified organism; B96.20 Unspecified Escherichia coli [E. coli] as the cause of diseases classified elsewhere; N17.9 Acute kidney failure, unspecified; J44.9 Chronic obstructive pulmonary disease, unspecified; I11.0 Hypertensive heart disease with heart failure; I50.32 Chronic diastolic (congestive) heart failure; I27.20 Pulmonary hypertension, unspecified; D72.828 Other elevated white blood cell count; I05.0 Rheumatic mitral stenosis; R59.0 Localized enlarged lymph nodes; F19.10 Other psychoactive substance abuse, uncomplicated; Z20.822 Contact with and (suspected) exposure to COVID-19; Z90.81 Acquired absence of spleen; Z86.74 Personal history of sudden cardiac arrest; Z86.16 Personal history of COVID-19
CPT/HCPCS: 36415; 80053; 81001; 83605; 85025; 86140; 87040; 87086; 94640; 94664; 94760; 96372; 96374; 96375; 96376; 99285; G0378; J0696; J1650; J7030; Q0177; U0002

== ENCOUNTER 2021-01-02 19:43 | Emergency (ER) | payer OTHER ==
[~2021-01-02 19:43] MED LIST changes: +LEVOFLOXACIN750 MG PO
[2021-01-02 22:44] LABS: HEMOGLOBIN 12.1 gm/dl (12.3-15.3); RED BLOOD COUNT 4.44 M/UL (4.00-5.10); WHITE BLOOD COUNT 17.5 K/UL (4.5-11.0)
[2021-01-02 22:59] LABS: BUN/CREATININE RATIO 15 (0-10)
[2021-01-03] MEDS ORDERED: [UNRECOGNIZED DRUG - REMARK] (04:09)
== END 2021-01-03 04:40 | disposition home or self-care (01) ==
LOC: ER1 19:43
PROVIDERS: Physician Assistant
DX: J84.10 Pulmonary fibrosis, unspecified (principal); D72.829 Elevated white blood cell count, unspecified; I50.9 Heart failure, unspecified; J44.9 Chronic obstructive pulmonary disease, unspecified; Z90.89 Acquired absence of other organs; Z90.49 Acquired absence of other specified parts of digestive tract; Z88.1 Allergy status to other antibiotic agents; F17.210 Nicotine dependence, cigarettes, uncomplicated; Z20.822 Contact with and (suspected) exposure to COVID-19
CPT/HCPCS: 71045; 80053; 85025; 99283; U0002

== ENCOUNTER 2021-09-29 22:42 | Emergency (ER) | payer OTHER ==
[~2021-09-29 22:42] MED LIST changes: +[UNRECOGNIZED DRUG - REMARK]
[2021-09-30 00:27] LABS: HEMOGLOBIN 14.3 gm/dl (12.3-15.3); RED BLOOD COUNT 5.05 M/UL (4.00-5.10); WHITE BLOOD COUNT 18.7 K/UL (4.5-11.0)
[2021-09-30] MEDS ORDERED: K-TAB ER10 MEQ PO (05:09)
== END 2021-09-30 05:47 | disposition home or self-care (01) ==
LOC: ER1 22:42
PROVIDERS: Physician Assistant Medical
DX: R07.9 Chest pain, unspecified (principal); E87.6 Hypokalemia; R06.02 Shortness of breath; I50.9 Heart failure, unspecified; J44.9 Chronic obstructive pulmonary disease, unspecified; F17.210 Nicotine dependence, cigarettes, uncomplicated; Z88.1 Allergy status to other antibiotic agents
CPT/HCPCS: 36600; 71045; 80053; 82550; 82553; 82803; 83880; 84484; 85025; 85379; 93005; 96365; 99285; J3480; Q9967

== ENCOUNTER 2021-11-15 10:45 | Emergency (ER) | payer OTHER ==
[~2021-11-15 10:45] MED LIST changes: +K-TAB ER10 MEQ PO
[2021-11-15 11:51] LABS: HEMOGLOBIN 14.3 gm/dl (12.3-15.3); RED BLOOD COUNT 4.96 M/UL (4.00-5.10); WHITE BLOOD COUNT 10.9 K/UL (4.5-11.0)
[2021-11-15 12:24] LABS: BUN/CREATININE RATIO 8 (0-10)
[2021-11-15] MEDS ORDERED: AZITHROMYCIN250 MG PO (14:33)
== END 2021-11-15 16:00 | disposition home or self-care (01) ==
LOC: ER1 10:45
PROVIDERS: Physician Assistant
DX: U07.1 COVID-19 (principal); Z23 Encounter for immunization; J18.9 Pneumonia, unspecified organism; I50.9 Heart failure, unspecified; F17.210 Nicotine dependence, cigarettes, uncomplicated; Z88.1 Allergy status to other antibiotic agents
CPT/HCPCS: 0240U; 71045; 80053; 82550; 82553; 83605; 84484; 85025; 96374; 99283; J1885; M0222